=== PATIENT | female | born 1930 | race Caucasian/White ===

== ENCOUNTER 2016-09-28 21:24 | Emergency (ER) | payer MEDICARE, MEDICAID ==
--- NOTE | ~2016-09-28 | ER ---
PATIENT'S NAME: [facility] AGE: 86 Y [address] ROOM: [place] [id number] LOCATION: [facility] ADMIT DATE: 09/28/2016 ER/Outpatient Report DISCHARGE DATE: FAMILY PHYSICIAN: Physician, Unknown ATTENDING PHYSICIAN: Home Boyd Admission date and time are documented in the medical record. I saw the patient at 2140 hours. CHIEF COMPLAINT: Red hot right hip, surrounding an open draining ulcer over the right greater trochanter of her hip. HISTORY OF PRESENT ILLNESS: This patient is an 86-year-old female who has been having problems with an open pressure ulcer, greater trochanter, right hip. Over the past day or 2, it started to get red, hot, swollen, and the wound is draining more. She has had a fever. No rigors or shaking chills. Brought to the emergency room for evaluation. No other complaints. HOME MEDICATIONS: See attached medication list. ALLERGIES: NONE. SOCIAL HISTORY: Nonsmoker, nondrinker. SIGNIFICANT PAST MEDICAL HISTORY: Hypertension, right greater trochanteric pressure ulcer, developmental disabilities, breast cancer, eye cancer, blindness, pulmonary hypertension, degenerative osteoarthritis, hemorrhoids, blepharitis, constipation, lower leg edema, and gastroesophageal reflux. OPERATIONS: Right mastectomy, hip surgery. REVIEW OF SYSTEMS: All systems reviewed by me are negative with the exception of those discussed in the history of present illness. PHYSICAL EXAMINATION: VITAL SIGNS: Temperature 100.4, temporal scanner, pulse 74, respirations 16, blood pressure 132/64, and O2 sat on room air is 89% on examination. PATIENT'S NAME: [facility] AGE: 86 Y [address] ROOM: [place] [address] LOCATION: [facility] ADMIT DATE: 09/28/2016 ER/Outpatient Report DISCHARGE DATE: FAMILY PHYSICIAN: Physician, Unknown ATTENDING PHYSICIAN: Home Boyd LUNGS: Clear. HEART: Regular. ABDOMEN: Soft, nontender. Good bowel tones. EXTREMITIES: There is some peripheral lower extremity edema, nonpitting, no cyanosis, no deformity. The patient has an open pressure ulcer over the greater trochanter of the right hip. There is surrounding swelling, erythema, that is hot to the touch, some drainage from the wound. LABORATORY DATA: Wound was cultured. Two blood cultures drawn. Her white count was 5500, 59 segs, 6 bands, 21 lymphs, 10 monos, 3 eos, 1 baso, hemoglobin is 10.5 with hematocrit 31.6, and platelet count 196,000. Sed rate was elevated 89. CRP was elevated 8.96. CMS was normal except an elevated glucose of 129, low calcium of 8.3. EMERGENCY DEPARTMENT COURSE: I did start the patient on IV clindamycin 900 mg here in the emergency department. IMPRESSION: 1. Cellulitis, right hip with an open draining pressure ulcer over the greater trochanter of the right hip. 2. Hypertension. PLAN: The patient dismissed back to [facility] in [place] from the emergency department here at [facility]. Continue present home medications and care. Stop Bactrim. We will start her on clindamycin 300 mg 4 times a day for a week and vancomycin 125 mg 4 times a day for a week. Follow up with personal physician in 2 days. MD SABIHA POLK/modl /[id number] d: 09/29/1652 t: 09/29/16 1813, OUTPATIENT REPORT
[~2016-09-28 21:24] MED LIST: ALBUTEROL2.5 MG/31 INH; ATIVAN 0.5MG0.5 MG PO; BACTRIM DS1 TAB PO; BISAC-EVAC10 MG R; COLACE100 MG PO; FIBERCON1 TAB PO; GLUCOSAMINE CH1 EAC2 PO; KLOR-CON 1010 MEQ PO; KLOR-CON M2020 MEQ; LASIX40 MG PO; LOPRESSOR25 MG PO; MAPAP325 MG PO; MILK OF MA400 MG/5 M PO; MIRALAX17 GM PO; NORVASC5 MG PO; NYSTATIN1 EAC1 TOP; PRILOSEC20 MG PO; PROCTOSOL-HC28.35 GM R; ROBITUSSIN DM120 ML PO; TYLENOL EXTRA500 MG PO
[2016-09-28 22:27] LABS: HEMATOCRIT 31.6 % (30.0-46.0); HEMOGLOBIN 10.5 g/dL (10.0-15.0); MCH 30.7 pg (27.0-34.0); MCHC 33.2 gm/dL (32.0-36.5); MCV 92.4 fl (83.0-98.0); PLATELET COUNT 196 K/uL (150-450); RBC 3.42 M/uL (3.00-5.00); RDW-CV 11.8 % (11.9-14.6); WBC 5.5 K/uL (4.0-11.0)
[2016-09-28 22:47] LABS: ALBUMIN 2.5 gm/dL (3.5-5.0); ANION GAP 10.6 (10.0-19.0); CALCIUM 8.3 mg/dL (8.5-10.5); POTASSIUM 4.6 mMol/L (3.7-5.1); TOTAL PROTEIN 6.2 g/dL (6.0-8.4)
[2016-09-28 22:50] LABS: TOTAL BILIRUBIN 0.2 mg/dL (0.0-1.5)
[2016-09-28 23:04] LABS: ABSOLUTE NEUTROPHIL CT (ANC) 3.6 K/uL (1.8-7.8); BANDED NEUTROPHIL # 0.3 K/uL (0.0-0.1); BANDED NEUTROPHILS % 6 %; LYMPHOCYTE # 1.2 K/uL (0.8-4.0); LYMPHOCYTE % 21 %; MONOCYTE # 0.6 K/uL (0.0-1.0); SEGMENTED NEUTROPHIL # 3.3 K/uL (1.8-7.8); SEGMENTED NEUTROPHIL % 59 %
[2016-11-03] MEDS ORDERED: MULTIVITAMINS1 EAC2 PO (22:33)
[2016-11-03] MEDS ORDERED: GOLD BOND MEDI283 G1 TOP (22:41)
[2016-11-03] MEDS ORDERED: DEBROX,CARBAMID15 ML OTIC (22:44)
[2016-11-03] MEDS ORDERED: PATADAY2.5 ML OPHTH (22:46)
[2016-11-03] MEDS ORDERED: NYSTATIN1 EAC1 TOP (22:50)
[2016-11-03] MEDS ORDERED: CLARITIN10 MG PO (22:53)
[2016-11-03] MEDS ORDERED: CIPRO500 MG PO (23:00)
[2016-11-03] MEDS ORDERED: LIQUACEL 100 LI30 ML PO (23:03)
== END 2016-09-29 00:29 | disposition disaster alternative care site (69) ==
LOC: GMED 21:24
PROVIDERS: Emergency Medicine
DX: L03.115 Cellulitis of right lower limb (principal); L89.219 Pressure ulcer of right hip, unspecified stage; M19.90 Unspecified osteoarthritis, unspecified site; I10 Essential (primary) hypertension; K21.9 Gastro-esophageal reflux disease without esophagitis; C69.90 Malignant neoplasm of unspecified site of unspecified eye; Z85.3 Personal history of malignant neoplasm of breast; Z90.11 Acquired absence of right breast and nipple; Z98.890 Other specified postprocedural states
CPT/HCPCS: J7050